=== PATIENT | female | born 1940 | race African-American/Black ===

== ENCOUNTER → 2016-06-06 | Outpatient (CLI) | payer MEDICARE ==
[2016-06-06 13:02] LABS: URINE BARBITURATES SCREEN NEGATIVE; URINE METHADONE SCREEN NEGATIVE; URINE OPIATES LOW NEGATIVE; URINE PHENCYCLIDINE SCREEN NEGATIVE
== END ==
LOC: OD 12:17
PROVIDERS: ATTEND Physician Assistant
DX: Z51.81 Encounter for therapeutic drug level monitoring (principal); Z79.891 Long term (current) use of opiate analgesic
CPT/HCPCS: 80307

== ENCOUNTER → 2016-11-07 | Outpatient (CLI) | payer MEDICARE ==
--- NOTE | 2016-11-07 10:39 | RADIOLOGY REPORT (SQ) ---
EXAM DESCRIPTION: CT CHEST WITHOUT COMPLETED DATE/TIME: 11/07/2016 10:04 am REASON FOR STUDY: HX OF LUNG CA (Z85.118) Z85.118 PERSONAL HISTORY OF MALIGNANT NEOPLASM OF BRONCHU S A COMPARISON: None. TECHNIQUE: CT scan performed of the chest without intravenous contrast. Images reviewed with lung, soft tissue and bone windows. Reconstructed coronal and sagittal MPR images reviewed. All images st ored on PACS. All CT scanners at this facility use dose modulation, iterative reconstruction, and/or weight based d osing when appropriate to reduce radiation dose to as low as reasonably achievable (ALARA). [facility]: Dose Right [facility]: CareDose [facility]: Dose Right [facility]: Teradose 4D [facility]: Smart 1DayMakeover RADIATION DOSE: Up-to-date CT equipment and radiation dose reduction techniques were employed. CTDIv ol: 16.8 mGy. DLP: 619 mGy-cm. mGy. LIMITATIONS: No technical limitations. FINDINGS: LUNGS AND PLEURA: Postsurgical changes thoracotomy and right upper lobectomy. Linear scar ring in the lung bases. No suspicious nodules. No effusions. HILAR AND MEDIASTINAL STRUCTURES: No identified masses or abnormal nodes. No obvious aneurysm. HEART AND VASCULAR STRUCTURES: No aneurysm. No pericardial effusion. UPPER ABDOMEN: Cholelithiasis. THYROID AND OTHER SOFT TISSUES: No masses. No adenopathy. BONES: No significant finding. HARDWARE: None in the chest. OTHER: No other significant findings. IMPRESSION: Postsurgical changes. No evidence of local recurrence. TECHNICAL DOCUMENTATION: JOB ID: [id number] Quality ID # [id number]: Final reports with documentation of one or more dose reduction techniques (e.g., Au tomated exposure control, adjustment of the mA and/or kV according to patient size, use of iterative reconstruction technique) 2010 [employer]- All Rights Reserved
== END ==
LOC: RAD 09:39
PROVIDERS: ATTEND Internal Medicine Pulmonary Disease
DX: Z85.118 Personal history of other malignant neoplasm of bronchus and lung (principal)
CPT/HCPCS: 71250

== ENCOUNTER 2019-04-19 11:53 | Emergency (ER) | payer MEDICARE ==
[2019-04-19] MEDS ORDERED: MIDAZOLAM 2 MG/2 ML INJ ONE (12:20)
[2019-04-19] MEDS ORDERED: PROPOFOL 1,000 MG/100 ML INFUS..BTL IV PRN ×2 (12:23→12:30)
[2019-04-19] MEDS ORDERED: MIDAZOLAM 2 MG/2 ML INJ IV ONE (12:23)
[2019-04-19] MEDS ORDERED: VECURONIUM BROMIDE INJ 10 MG VIAL IV ONE ×2 (12:23→12:24)
[2019-04-19 12:35] LABS: HEMOGLOBIN 8.7 g/dL (12.0-15.5); MEAN CORPUSCULAR HEMOGLOBIN 30.8 pg (27.0-33.4); MEAN CORPUSCULAR VOLUME 107 fl (80-97); PLATELET COUNT 166 10^3/uL (150-450); RED BLOOD COUNT 2.82 10^6/uL (3.72-5.28); RED CELL DISTRIBUTION WIDTH 24.6 % (11.5-14.0); WHITE BLOOD COUNT 12.5 10^3/uL (4.0-10.5)
--- NOTE | 2019-04-19 12:46 | RADIOLOGY REPORT (SQ) ---
EXAM DESCRIPTION: CHEST SINGLE VIEW COMPLETED DATE/TIME: 04/19/2019 12:16 pm REASON FOR STUDY: post arrest bed 15 COMPARISON: None. EXAM PARAMETERS: NUMBER OF VIEWS: One view. TECHNIQUE: Single frontal radiographic view of the chest acquired. RADIATION DOSE: NA LIMITATIONS: Overlying support apparatus. FINDINGS: LUNGS AND PLEURA: Mild pulmonary edema. No pneumothorax. MEDIASTINUM AND HILAR STRUCTURES: No masses. Contour normal. HEART AND VASCULAR STRUCTURES: Heart normal in size. Normal vasculature. BONES: No acute findings. HARDWARE: None in the chest. OTHER: Appropriate position of endotracheal tube. IMPRESSION: Good position of endotracheal tube. No pneumothorax. TECHNICAL DOCUMENTATION: JOB ID: [id number] [employer]- All Rights Reserved Reading location - IP/workstation name: [email or web address]
[2019-04-19 12:58] LABS: ALBUMIN 3.5 g/dL (3.5-5.0); ALKALINE PHOSPHATASE 38 U/L (38-126); ASPARTATE AMINO TRANSFERASE 64 U/L (14-36); BILIRUBIN,DIRECT 0.4 mg/dL (0.0-0.4); BILIRUBIN,TOTAL 1.3 mg/dL (0.2-1.3); BLOOD UREA NITROGEN 23 mg/dL (7-20); CALCIUM 9.3 mg/dL (8.4-10.2); CREATINE KINASE 31 U/L (30-135); POTASSIUM 4.3 mmol/L (3.6-5.0); TOTAL PROTEIN 6.2 g/dL (6.3-8.2)
[2019-04-19 12:59] LABS: ABSOLUTE LYMPHOCYTES# (MANUAL) 3.4 10^3/uL (0.5-4.7); ABSOLUTE MONOCYTES # (MANUAL) 0.9 10^3/uL (0.1-1.4); BASOPHILS % (MANUAL) 0 % (0-2); EOSINOPHILS % (MANUAL) 0 % (0-6); LYMPHOCYTES % (MANUAL) 27 % (13-45); MONOCYTES % (MANUAL) 7 % (3-13); SEGMENTED NEUTROPHILS % (MAN) 66 % (42-78); TOTAL CELLS COUNTED 100
[2019-04-19 13:04] LABS: CARBON DIOXIDE 12 mmol/L (22-30); CHLORIDE 100 mmol/L (98-107)
[2019-04-19 13:05] LABS: ANISOCYTOSIS 3+; POLYCHROMASIA SLIGHT; TOXIC GRANULATION SLIGHT; TOXIC VACUOLATION PRESENT
[2019-04-19 13:06] LABS: OVALOCYTES SLIGHT; SCHISTOCYTES SLIGHT
[2019-04-19 13:08] LABS: CREATINE KINASE MB 1.33 ng/mL (<4.55)
[2019-04-19 13:09] LABS: PLATELET COMMENT ADEQUATE
[2019-04-19 13:10] LABS: ANION GAP 26 (5-19)
[2019-04-19] MEDS ORDERED: HEPARIN SOD (PORCINE) 1,000 UNIT/ML 10 ML VIAL IV ONE (13:12)
--- NOTE | 2019-04-19 13:13 | RADIOLOGY REPORT (SQ) ---
EXAM DESCRIPTION: KUB/ABDOMEN (SINGLE VIEW) COMPLETED DATE/TIME: 04/19/2019 12:01 pm REASON FOR STUDY: NGT PLACEMENT COMPARISON: Chest radiograph same date NUMBER OF VIEWS: One view. TECHNIQUE: Supine radiographic image of the abdomen acquired. LIMITATIONS: None. FINDINGS: BOWEL GAS PATTERN: Upper abdomen is unremarkable. CALCIFICATIONS: Calcification along the diaphragmatic pleura. SOFT TISSUES: No gross mass or suggestion of organomegaly. HARDWARE: Esophagogastric tube tip and side-hole are below the GE junction likely within the stomach. Endotracheal tube is unchanged in the lower thoracic trachea. BONES: No acute fracture. No worrisome bone lesions. OTHER: No other significant finding. IMPRESSION: Esophagogastric tube tip and side-hole are below the GE junction within the stomach. TECHNICAL DOCUMENTATION: JOB ID: [id number] 3426[employer]- All Rights Reserved Reading location - IP/workstation name: [email or web address]
[2019-04-19 13:14] LABS: GLUCOSE 447 mg/dL (75-110)
[2019-04-19 13:15] LABS: TROPONIN I 0.331 ng/mL
--- NOTE | 2019-04-19 13:16 | RADIOLOGY REPORT (SQ) ---
EXAM DESCRIPTION: CHEST SINGLE VIEW COMPLETED DATE/TIME: 04/19/2019 11:59 am REASON FOR STUDY: unresponsive COMPARISON: Abdominal radiograph, same date at 1213 hours. EXAM PARAMETERS: NUMBER OF VIEWS: One view. TECHNIQUE: Single frontal radiographic view of the chest acquired. RADIATION DOSE: NA LIMITATIONS: None. FINDINGS: LUNGS AND PLEURA: There are patchy alveolar opacities in both lungs in a perihilar and per ipheral distribution. Atelectasis at the lung bases. Calcification of the diaphragmatic pleura on t he right. No pneumothorax. MEDIASTINUM AND HILAR STRUCTURES: No masses. Contour normal. HEART AND VASCULAR STRUCTURES: Heart has normal size. There is pulmonary vascular congestion. BONES: Osteoarthritis of the shoulders. HARDWARE: An endotracheal tube is present within the lower thoracic trachea approximately 2.3 cm abov e the kofi. Esophagogastric tube is partially visualized with tip below the diaphragm. OTHER: No other significant finding. IMPRESSION: Esophagogastric and endotracheal tubes are in good position. There is moderate pulmonar y edema. Goal consolidation. TECHNICAL DOCUMENTATION: JOB ID: [id number]- All Rights Reserved Reading location - IP/workstation name: [email or web address]
[2019-04-19 13:20] VITALS: BP 143/72
--- NOTE | 2019-04-19 13:21 | ER Document Report ---
ED General - General Chief Complaint: Unresponsive Stated Complaint: UNRESPONSIVE Time Seen by Provider: 04/19/19 12:10 Primary Care Provider: ALMA BHATIA PA-C [Primary Care Provider] - Follow up as needed Mode of Arrival: Carried Information source: Relative TRAVEL OUTSIDE OF THE [place] IN LAST 30 DAYS: No - HPI Notes: Patient apparently presented to triage unresponsive. She was immediately brought back to room 15. When I walked into the room patient was unresponsive and unable to give any type of history. Family member that was with her states that she was complaining of chest pain this morning. They state they put her in the car to drive here and when she arrived in the parking lot she went unresponsive. She was pulled from the car by our personnel unresponsive and immediately brought to room 15. Patient's chest pain this morning was apparently constant and severe. Nothing known that made it better or worse. There is no known shortness of breath. No known recent cough cold or congestion. No known trauma. There is no known radiation of this pain. Patient was never able to characterize the pain. - Related Data Allergies/Adverse Reactions: No Known Allergies Allergy (Unverified 06/04/12 19:45) Past Medical History - General Information source: Relative - Social History Smoking Status: Never Smoker Frequency of alcohol use: None Drug Abuse: None Family History: Reviewed & Not Pertinent Patient has suicidal ideation: No Patient has homicidal ideation: No - Past Medical History Cardiac Medical History: Reports: Hx Coronary Artery Disease - Stent, Hx Hypercholesterolemia, Hx Hypertension Pulmonary Medical History: Reports: Hx COPD Neurological Medical History: Denies: Hx Seizures Endocrine Medical History: Reports: Hx Diabetes Mellitus Type 2, Hx Hyperthyroidism Malignancy Medical History: Reports: Hx Lung Cancer - Rt lung tumor removed 10- 15 yrs ago Musculoskeletal Medical History: Reports Hx Arthritis - Shoulders, Lt knee Traumatic Medical History: Reports: Hx Fractures - Rt ankle yrs ago Past Surgical History: Reports: Hx Appendectomy, Hx Hysterectomy, Hx Tonsillectomy. Denies: Hx Pacemaker - Immunizations Immunizations up to date: No Hx Diphtheria, Pertussis, Tetanus Vaccination: No Review of Systems - Review of Systems -: Yes ROS unobtainable due to patient's medical condition - Patient in cardiac arrest Physical Exam - Vital signs Vitals: Resp Pulse Ox 32 H 82 L 04/19/19 11:55 04/19/19 11:55 Interpretation: Hypotensive, Bradycardic, Hypoxic - General General appearance: Unresponsive In distress: Severe - HEENT Head: Normocephalic, Atraumatic Eyes: Normal Pupils: PERRL - Respiratory Respiratory status: Agonal respirations Chest status: No: Chest mass, Ecchymosis Breath sounds: Decreased air movement Chest palpation: Normal - Cardiovascular Rhythm: Other - No heart sounds could be auscultated Murmur: No Pulses: Absent: Radial, Femoral - Abdominal Inspection: Normal Distension: No distension Bowel sounds: Normal Organomegaly: No organomegaly - Back Back: Normal, Nontender - Extremities General upper extremity: Normal inspection, Normal color General lower extremity: Normal inspection, Edema - 2+ pitting bilaterally, Normal color. No: Billy's sign - Neurological Neuro grossly intact: No Orientation: Disoriented to person, Disoriented to place, Disoriented to time Cally Coma Scale Eye Opening: None Cally Coma Scale Verbal: None Cally Coma Scale Motor: None Bat[place]lor Coma Scale Total: 3 - Psychological Associated symptoms: Confused, Psychomotor depression - Skin Skin Temperature: Cool Skin Moisture: Dry Skin Color: Pale Course - Re-evaluation Re-evalutation: 04/19/19 13:24 Patient arrived in cardiac arrest with agonal respirations and no pulses. She was immediately given an amp of epi and placed on the monitor simultaneously. By the time she was placed on the monitor she had an idioventricular rhythm that converted to a atrial flutter rhythm in the 200s. Initial blood pressure was not obtainable however after epinephrine she had a blood pressure approximately 200 systolic. She was immediately intubated. Initial saturations were 98 100%. Saturations have now drifted down. There was some trouble getting the saturations above about 85 to 86%. Different measures were tried to increase them. This included bagging. Placing an NG. Changing ventilator modes and decreasing rate. I also consulted pulmonology. The mess attendant crew saw the patient in the room and suggested lowering the rate. At this time patient is oxygen saturation approximately 90 to 92%. 2 x-rays were done both show the endotracheal tube to be in good position with good lung expansion. Patient's current blood pressure is approximate 120 systolic. She has not had any pressures. She has received IV fluids. Patient's rhythm is now in sinus tachycardia. She did not have to be cardioverted. Patient had received a heparin bolus at the request of the transfer center bonding and composite fabricator. Patient's initial EKG showed atrial flutter. Subsequent EKG shows a sinus rhythm with some ST elevation in the lateral leads suggesting possible myocardial infarction. Myocardial infarction seems like the most likely diagnosis that she had chest pain all morning and then went into cardiac arrest. Another possibility would be a pulmonary embolism and heparin has been given for this. Patient was never stable to go to CT scanner for further evaluation. Patient cannot receive lytics as she had CPR. Neurologically patient has been primarily unresponsive. She had a brief episode where she did some nonpurposeful movements after which she was paralyzed. She was paralyzed because she was pulling at her endotracheal tube. - Vital Signs Vital signs: Temp Pulse Resp BP Pulse Ox 16 143/72 H 92 04/19/19 13:05 04/19/19 13:05 04/19/19 13:05 - Laboratory Result Diagrams: 04/19/19 12:14 04/19/19 12:14 Laboratory results interpreted by me: 04/19/19 04/19/19 04/19/19 12:03 12:14 12:14 WBC 12.5 H RBC 2.82 L Hgb 8.7 L Hct 30.0 L MCV 107 H MCHC 29.0 L RDW 24.6 H Abs Neuts (Manual) 8.3 H Carbon Dioxide 12 L Anion Gap 26 H BUN 23 H Creatinine 1.53 H Est GFR ( Amer) 40 L Est GFR (MDRD) Non-Af 33 L Glucose 447 H* POC Glucose 253 H AST 64 H Total Protein 6.2 L - Diagnostic Test Radiology reviewed: Image reviewed, Reports reviewed - EKG Interpretation by Me Rate: Tachycardia Rhythm: A.Flutter [place]/QRS: No: Right axis deviation, Left axis deviation Additional EKG results interpreted by me: 04/19/19 13:28 Patient second EKG shows a sinus tachycardia. Has a rate of 118. Patient has some ST elevation in V4 V5 V6 with ST depression in 1 and aVL. It is significantly concerning for myocardial infarction. Procedures - Intubation Orotracheal Time of Intubation: 11:20 Airway evaluation: Large tongue, Obese Mallampati Classification: Class 2 Intubation method: Orotracheal Blade type: Destiny Blade size: 3 Equipment used: Glidescope ETT size: 7.5 ETT secured at: Lips - 22 ETT secured at (cm): 22 Breath Sounds after Intubation: Equal End tidal CO2 confirmed: Yes Ventilator settings: SIMV Tidal volume: 500 FiO2: 100 Pressure support: 10 PEEP: 12 Post Intubation Xray: Yes Intubation Complications: No complications Critical Care Note - Critical Care Note Total time excluding time spent on procedures (mins): 90 Comments: Proximally 90 minutes of critical care time were spent on this patient. This included multiple reassessments. It included managing her cardiopulmonary arrest. It included discussions with family. And included discussions with consultants. It included reviewing laboratories and images. Discharge - Discharge Clinical Impression: Cardiopulmonary arrest with successful resuscitation Myocardial infarct Qualifiers: Myocardial infarction type: ST elevation myocardial infarction Involved coronary artery: unspecified coronary artery Qualified Code(s): I21.3 - ST elevation (STEMI) myocardial infarction of unspecified site Atrial flutter Qualifiers: Atrial flutter type: atypical Qualified Code(s): I48.4 - Atypical atrial flutter Condition: Critical Disposition: [facility] Referrals: ALMA BHATIA PA-C [Primary Care Provider] - Follow up as needed
[2019-04-19] MEDS ORDERED: DEXTROSE 50%-WATER 25 GM/50 ML DISP.SYRIN IV ONE (13:48)
[2019-04-19] MEDS ORDERED: SODIUM BICARBONATE 8.4% INJ 50 MEQ/50 ML DISP.SYRIN IV ONE (13:49)
[2019-04-19] MEDS ORDERED: EPINEPHRINE INJ 1 MG/10 ML DISP.SYRIN IV ONE ×2 (13:49→17:03)
--- NOTE | 2019-04-19 16:23 | EKG REPORT ---
SEVERITY:- ABNORMAL ECG - A-FLUTTER W/ PREDOM 2:1 AV BLOCK, A-RATE 288 REPOLARIZATION ABNORMALITY, PROB RATE RELATED : Confirmed by: Kristin Thomas MD 19-Apr-2019 16:23:06
--- NOTE | 2019-04-19 16:23 | EKG REPORT ---
SEVERITY:- ABNORMAL ECG - SINUS TACHYCARDIA PROBABLE INFERIOR INFARCT, AGE INDETERMINATE LATERAL INFARCT, AGE INDETERMINATE ANTERIOR INFARCT, AGE INDETERMINATE : Confirmed by: Kristin Thomas MD 19-Apr-2019 16:22:59
[2019-04-19] MEDS ORDERED: NORMAL SALINE 1000 ML 2,000 ML IV ONE (17:31)
[2019-04-19] MEDS ORDERED: EPINEPHRINE INJ 1 MG/10 ML DISP.SYRIN ONE (20:53)
[2019-04-19] MEDS ORDERED: CALCIUM GLUCONATE 1000 MG/10 ML INJ IV ONE (20:53)
[2019-04-19] MEDS ORDERED: SODIUM BICARBONATE 8.4% INJ 50 MEQ/50 ML DISP.SYRIN ONE (20:53)
== END 2019-04-19 13:30 | disposition short-term general hospital (02) ==
LOC: ER 11:53
DX: I46.9 Cardiac arrest, cause unspecified (principal); I21.3 ST elevation (STEMI) myocardial infarction of unspecified site; I48.4 Atypical atrial flutter; R60.0 Localized edema; I25.10 Atherosclerotic heart disease of native coronary artery without angina pectoris; I10 Essential (primary) hypertension; J44.9 Chronic obstructive pulmonary disease, unspecified; E11.9 Type 2 diabetes mellitus without complications; Z95.5 Presence of coronary angioplasty implant and graft
CPT/HCPCS: 93005; 99291; 99292; 96361; 96374; 96375; 36415; 82553; 82962; 82550; 85025; 80053; 84484; 71045; 74018; 94660; 93010; 36600; 31500; J2250; J0610; J3490 ×3; J0171; J1644; J7030